=== PATIENT | male | born 2000 | race Caucasian/White ===

== ENCOUNTER 2020-10-23 16:45 | Emergency (ER) | payer MEDICAID, SELFPAY ==
--- NOTE | 2020-10-23 18:30 | ED.GENADULT ---
HPI - General Adult General Chief complaint: General Medical Stated complaint: med refill Time Seen by Provider: 10/23/20 18:30 Source: patient Mode of arrival: ambulatory Limitations: no limitations History of Present Illness HPI narrative: History of ADHD from long term He is in between to [facility] and providers he is on Vyvanse His last dose was today he is here with long term staff requesting refill This was confirmed on his med rec Onset (ago): day(s) Relieving factors: none Exacerbating factors: none Associated symptoms: denies other symptoms Treatments prior to arrival: none Related Data Previous Rx's Medication Instructions Recorded lisdexamfetamine [Vyvanse] 50 mg PO DAILY #14 cap 10/23/20 Allergies Allergy/AdvReac Type Severity Reaction Status Date / Time No Known Allergies Allergy Unverified 03/28/20 16:42 [No Known Allergies*] Review of Systems Review of Systems: Constitutional: No Weight loss, No Fever, No Chills, No Night Sweats, No Fatigue, No Malaise ENT/Mouth: No Hearing loss, No Ear Pain, No Nasal Congestion, No Sinus Pain, No Hoarseness, No sore throat, No Rhinorrhea, No Swallowing Difficulty Eyes: No Eye Pain, No Swelling, No Redness, No Foreign Body, No Discharge, No Vision Changes Cardiovascular: No Chest Pain, No SOB, No Dyspnea on Exertion, No Orthopnea, No Edema, No Palpitations Respiratory: No Cough, No Sputum, No Wheezing, No Smoke Exposure, No Dyspnea Gastrointestinal: No Nausea, No Vomiting, No Diarrhea, No Constipation, No abdominal Pain, No Hematochezia, No Melena Genitourinary: no irregular bleeding, No Dysuria, No Urinary Frequency, No Hematuria, No Urinary Incontinence, No Urgency, No Flank Pain, No Urinary Flow Changes, No Hesitancy Musculoskeletal: No joint pain, No Myalgias, No Joint Swelling Skin: No Skin Lesions, No rash Neuro: No Weakness, No Numbness, No Paresthesias, No Loss of Consciousness, No Dizziness, No Headache Psych: No Anxiety/Panic, No Depression, No SI/HI/AH/VH, No Social Issues Heme/Lymph: No Bruising, No Bleeding,No Lymphadenopathy Endocrine: No Polyuria, No Polydipsia, No Temperature Intolerance Yes all other systems are reviewed and are negative ON LICENSE OF [facility] Past Medical History Medical History ADHD Social History Social History Advance Directives: No Advance Directives Information Provided: No Physical Exam Vital Signs: Vital Signs: Last Vital Signs Temp 97.8 F 10/23/20 18:46 Pulse 70 10/23/20 18:46 Resp 16 10/23/20 18:46 BP 100/64 10/23/20 18:46 Pulse Ox 98 10/23/20 18:46 Body Mass Index 22.1 Reviewed Const: General: cooperative and healthy appearing; No acute distress or intoxicated appearing Nutritional Appearance: average body habitus Orientation/consciousness: patient oriented x3 HENMT: Head: Yes normal to inspection Ears: hearing grossly normal bilaterally Eyes: General: appearance normal, both eyes and all related structures Visual Amezquita: normal visual amezquita by confrontation Neck: Neck: Yes normal visual inspection, No positive Brudzinski's sign, No positive Kernig's sign and No tender Thyroid: Thyroid normal Chest: Chest palpation & inspection: normal inspection of the chest Resp: Effort & Inspection: normal respiratory effort Auscultation: clear to auscultation bilaterally Cardio: Jugular venous distension: no JVD Rhythm: regular rhythm Heart sounds: S1 normal heart sound present and S2 normal heart sound present GI: Inspection: Yes normal to inspection Palpation (GI): Soft to palpation Percussion: Yes normal to percussion Auscultation: normal bowel sounds : General: Yes no CVA tenderness Back/Spine/Pelvis: Back: no CVA tenderness Skin: General skin exam: no rashes or lesions noted Neuro: General: patient oriented x3 Extrem: General: Yes normal to inspection Course Reevaluation(s) Reevaluation #1: Here with long term staff Will provide courtesy a bridge prescription. Mass pat reviewed Discharge Plan Discharge Clinical Impression: Medication refill Patient Disposition: Home, Self-Care Instructions: Medicine Refill (ED) Additional Instructions: Follow-up with your primary care doctor/prescriber Return if any concerns or worsening symptoms The prescription of your Vyvanse was sent to your pharmacy at [address] [place] [address] Thank you Prescriptions: New Vyvanse 50 mg capsule 50 mg PO DAILY Qty: 14 RF: 0 Referrals: Curtis Spivey MD [Primary Care Provider] - 5 days
[2020-10-23 18:46] VITALS: BP 100/64; PULSE 70; RESP 16; TEMP 36.6; O2SAT 98; BMI 22.1
== END 2020-10-23 19:10 | disposition home or self-care (01) ==
PROVIDERS: Emergency Provider Emergency Medicine; PCP Psychiatry & Neurology Psychiatry
DX: F90.9 Attention-deficit hyperactivity disorder, unspecified type (principal); Z76.0 Encounter for issue of repeat prescription
CPT/HCPCS: 99283

== ENCOUNTER 2020-12-06 16:30 | Emergency (ER) | payer OTHER, SELFPAY ==
[2020-12-06 16:58] VITALS: BP 115/70; PULSE 93; RESP 18; TEMP 36.7; O2SAT 100; BMI 21.9
--- NOTE | 2020-12-06 17:38 | ED.GENADULT ---
HPI - General Adult General Chief complaint: General Medical Stated complaint: med refill Time Seen by Provider: 12/06/20 17:38 History of Present Illness HPI narrative: Patient who lives in residential and takes Vyvanse for ADD is out of medication, they called the prescriber who said he sent it but there is none there and it is now the weekend and are asking for a short course of medication for few days, no other medical complaints no injury no other issue Related Data Previous Rx's Medication Instructions Recorded lisdexamfetamine [Vyvanse] 50 mg PO DAILY #14 cap 10/23/20 lisdexamfetamine [Vyvanse] 50 mg PO DAILY #5 cap 12/06/20 Allergies Allergy/AdvReac Type Severity Reaction Status Date / Time No Known Allergies Allergy Verified 12/06/20 17:25 [No Known Allergies*] Review of Systems Review of Systems: Negative for fever chills dizziness headache neck pain chest pain shortness of breath abdominal pain nausea or vomiting Yes all other systems are reviewed and are negative PMFSH Past Medical History [facility] Narrative: History of ADD Source: nursing notes reviewed Medical History ADHD Social History Social History Advance Directives: No Advance Directives Information Provided: No Physical Exam Vital Signs: Vital Signs: Last Vital Signs Temp 98.1 F 12/06/20 16:58 Pulse 93 12/06/20 16:58 Resp 18 12/06/20 16:58 BP 115/70 12/06/20 16:58 Pulse Ox 100 12/06/20 16:58 Body Mass Index 21.9 General appearance no acute distress come and cooperative Pupils equal round reactive to light Pharynx is clear with moist mucous membranes Neck is supple Chest clear to auscultation bilateral no respiratory distress Extremities full range of motion x4 Neuro gait and balance are normal Michele, speech both understanding and expression are normal Course Course Course Narrative: Patient is given a 5 day refill for the Vyvanse and advised long-term refill has to come from a doctor who knows her and who is the regular prescriber Discharge Plan Discharge Clinical Impression: Medication refill Patient Disposition: Home, Self-Care Additional Instructions: Vyvanse is a controlled substance so regular prescriber needs to fill the monthly refill, someone who knows the patient and understands the need for the medication should write a refill I wrote for 5 tablets which should be plenty of time to call his doctor Return any concerns Prescriptions: New Vyvanse 50 mg capsule 50 mg PO DAILY Qty: 5 RF: 0 No Action Vyvanse 50 mg capsule 50 mg PO DAILY Qty: 14 RF: 0 Interventions: ED Discharge Assessment Last Done: 12/06/20 17:53 Discharge Date/Time: 12/06/20 18:41
== END 2020-12-06 18:41 | disposition home or self-care (01) ==
PROVIDERS: Emergency Provider Internal Medicine
DX: F90.9 Attention-deficit hyperactivity disorder, unspecified type (principal); Z76.0 Encounter for issue of repeat prescription
CPT/HCPCS: 99282; 99283

== ENCOUNTER 2021-08-28 10:21 | Outpatient (REF) | payer OTHER, SELFPAY ==
--- NOTE | 2021-08-28 16:22 | MHC.AU.ANR ---
Adult Audiological Evaluation Date of Visit: 08/28/21 Reason for Appointment: Annual audiological evaluation as required by Mr. Voss's care program. Mr. Voss and his environmental studies program director deny any concerns for his hearing. Does patient feel they have a hearing loss?: No Has hearing been tested previously?: No Hearing Handicap Inventory: HHIE SCORE: 0 Based on HHIE score, patient has: No perceived hearing handicap Medical History: Medical History: Mood disorder, depression, anxiety, ADHD, Autism Spectrum Disorder, asthma Allergies: Seasonal Allergies Medication List: Fluoxetine/Prozac, Lamotrigine/Lamictal, Lisdexamefetamine/Vyvanse, Minocin/Minocycline, Guanfacine/Tenex, Acetaminophen/Tylenol PRN, Albuterol inhaler/Pro-Air PRN, Acetylcysteine/NAC Otoscopy: Right Ear: Unremarkable Left Ear: Unremarkable Tympanometry: Tympanometry performed due to: To assess integrity of the middle ear system Right Ear: Normal Middle Ear System (Type A) Left Ear: Normal Middle Ear System (Type A) Hearing Evaluation: Transducer(s) Used: Insert Earphones, Bone Conduction Method: Conventional Audiometry Stimuli Used: Pure Tones Right Ear: Description of Hearing: Normal hearing from 250-8000 Hz. Left Ear: Description of Hearing: Normal hearing from 250-8000 Hz. Speech Recognition Threshold (SRT): Method Used: Monitored Live Voice Stimuli Used: Spondee Words Right Ear: 15 dBHL Left Ear: 10 dBHL Word Discrimination: Method: Recorded Lists Word Lists Used: NU-6 Right Ear: 88% at 55 dBHL Left Ear: 100% at 55 dBHL Interpretation of Results: Clear ear canals, normal hearing, and normal middle-ear function bilaterally. Recommendations: No further audiological action is indicated at this time. Audiological re-evaluation if changes are noted. Diagnosis: Primary Diagnosis: H93.293 Abnormal Auditory Perception Services Performed: Services Performed: Pure Tone- Air (CPT 85644) Speech Audiometry Threshold, with Speech Recognition (CPT 35357) Tympanometry (CPT 50607) Signature: Provider: Shanique Neal, CCC-A
== END 2021-08-28 10:22 | disposition home or self-care (01) ==
LOC: HO.SH 10:21
PROVIDERS: Visit Provider Physician Assistant Medical
DX: Z01.118 Encounter for examination of ears and hearing with other abnormal findings (principal); H93.293 Other abnormal auditory perceptions, bilateral
CPT/HCPCS: 92552; 92556; 92567

== ENCOUNTER 2022-12-15 07:51 | Outpatient (REF) | payer OTHER, SELFPAY | END 2022-12-15 07:52 | disposition home or self-care (01) | LOC: HO.SH 07:51 | PROVIDERS: Visit Provider Physician Assistant Medical | DX: Z01.118 Encounter for examination of ears and hearing with other abnormal findings (principal); H90.3 Sensorineural hearing loss, bilateral | CPT/HCPCS: 92557; 92567; 92588 ==

== ENCOUNTER 2024-02-23 15:47 | Outpatient (REF) | payer OTHER, SELFPAY | END 2024-02-23 15:48 | disposition home or self-care (01) | LOC: HO.SH 15:47 | PROVIDERS: Visit Provider Physician Assistant Medical | DX: Z01.118 Encounter for examination of ears and hearing with other abnormal findings (principal); H90.3 Sensorineural hearing loss, bilateral | CPT/HCPCS: 92557; 92567 ==